=== PATIENT | female | born 1955 | race Caucasian/White ===

== ENCOUNTER 2018-01-15 15:56 | Emergency (ER) | payer OTHER ==
[~2018-01-15] VITALS: Ht 172.7 cm; Wt 90.9 kg
[~2018-01-15 15:56] MED LIST: PREDNISONE20 MG PO; UNKNOWN BP MED; ZITHROMAX 250M250 MG PO
[2018-01-15 16:05] VITALS: BP 179/70; PULSE 68; TEMP 98.4
[2018-01-15] MEDS ORDERED: ATARAX50 MG PO (16:35)
[2018-01-15] MEDS ORDERED: ASPIRIN 81M81 MG/TA2 PO (16:40)
[2018-01-15] MEDS ORDERED: COZAAR100 MG PO (16:41)
[2018-01-15] MEDS ORDERED: PROZAC 20MG20 MG PO (16:41)
[2018-01-15] MEDS ORDERED: CLARITIN 1010 MG/TAB PO (16:41)
[2018-01-15] MEDS ORDERED: NORVASC 5MG5 MG/TAB PO (16:42)
[2018-01-15] MEDS ORDERED: CYMBALTA 30MG30 MG PO (16:42)
== END 2018-01-15 16:49 | disposition home or self-care (01) ==
LOC: COL.ER 15:56
DX: F32.9 Major depressive disorder, single episode, unspecified (principal); I10 Essential (primary) hypertension; Z79.82 Long term (current) use of aspirin

== ENCOUNTER 2018-02-20 16:46 | Emergency (ER) | payer OTHER ==
[~2018-02-20] VITALS: Ht 172.7 cm; Wt 93.2 kg
[~2018-02-20 16:46] MED LIST changes: +ASPIRIN 81M81 MG/TA2 PO; +ATARAX50 MG PO; +CLARITIN 1010 MG/TAB PO; +COZAAR100 MG PO; +CYMBALTA 30MG30 MG PO; +NORVASC 5MG5 MG/TAB PO; +PROZAC 20MG20 MG PO
[2018-02-20 17:18] LABS: COLLECTION METHOD CLEAN CATCH
[2018-02-20 17:23] LABS: BASO % 0.4 % (0.0-2.0); GRAN # 3.6 (1.4-6.5); GRAN % 77.7 % (42.2-75.2); HEMATOCRIT 44.5 % (37.0-47.0); HEMOGLOBIN 15.5 g/dl (12.5-16.0); LYMPH # 0.6 (1.2-3.4); LYMPH % 11.8 % (20.0-51.0); MEAN CELL VOLUME 89 fl (80.0-100.0); MEAN CORPUSCULAR HEMOGLOBIN 31 pg (27.0-31.0); MEAN CORPUSCULAR HGB CONC 35 g/dl (33.0-37.0); MONO # 0.5 (0.1-0.6); MONO % 9.7 % (1.7-9.3); PLATELET COUNT 151 K/mm3 (130-400); RED BLOOD COUNT 4.99 M/mm3 (4.10-5.30); REDCELL DISTRIBUTION WIDTH-CV 13.7 % (11.5-14.5)
[2018-02-20 17:28] LABS: MUCOUS Present /lpf; PH 5 (5-8); URINE APPEARANCE Clear; URINE BACTERIA Rare /hpf; URINE BILIRUBIN Negative (NEGATIVE); URINE BLOOD 2+ (NEGATIVE); URINE COLOR Yellow; URINE GLUCOSE Negative (NEGATIVE); URINE KETONE Negative (NEGATIVE); URINE LEUKOCYTE ESTERASE Negative (NEGATIVE); URINE NITRATE Negative (NEGATIVE); URINE PROTEIN(semi-quant) Negative (NEGATIVE)
[2018-02-20 17:40] LABS: BILIRUBIN,TOTAL 0.7 mg/dL (0.0-1.0); C-REACTIVE PROTEIN 4.3 mg/dL (0.0-0.9); CALCIUM 9.2 mg/dL (8.4-10.2); CREATININE, serum 0.95 mg/dL (0.52-1.25); POTASSIUM 4.1 mmol/L (3.4-5.0); TOTAL PROTEIN 8.1 gm/dL (6.4-8.2)
[2018-02-20] MEDS ORDERED: DOXYCYCLINE 10100 MG PO (18:26)
[2018-02-20 19:20] VITALS: BP 135/75; PULSE 72; TEMP 100.4
== END 2018-02-20 19:20 | disposition home or self-care (01) ==
LOC: COL.ER 16:46
PROVIDERS: Emergency Medicine
DX: R50.9 Fever, unspecified (principal); F41.9 Anxiety disorder, unspecified; F32.9 Major depressive disorder, single episode, unspecified; Z79.82 Long term (current) use of aspirin
CPT/HCPCS: J7030

== ENCOUNTER → 2018-06-23 | Outpatient (CLI) | payer OTHER ==
[~2018-06-23] MED LIST changes: +DOXYCYCLINE 10100 MG PO
== END ==
LOC: MC.RAD 08:29
DX: Z12.31 Encounter for screening mammogram for malignant neoplasm of breast (principal); N63.21 Unspecified lump in the left breast, upper outer quadrant

== ENCOUNTER → 2018-06-27 | Outpatient (CLI) | payer OTHER | LOC: MC.RAD 09:11 | DX: N63.21 Unspecified lump in the left breast, upper outer quadrant (principal) | CPT/HCPCS: G0279 ==

== ENCOUNTER → 2018-07-02 | Outpatient (CLI) | payer OTHER | LOC: MC.RAD 06:50 | DX: N63.20 Unspecified lump in the left breast, unspecified quadrant (principal); Z98.82 Breast implant status ==